=== PATIENT | female | born 1955 | race Caucasian/White ===

== ENCOUNTER 2018-09-11 12:45 | Outpatient (CLI) | payer MEDICARE | END 2018-09-11 12:46 | disposition home or self-care (01) | LOC: BICMAMMO 12:45 | PROVIDERS: ATTEND Family Medicine | DX: Z12.31 Encounter for screening mammogram for malignant neoplasm of breast (principal); R92.1 Mammographic calcification found on diagnostic imaging of breast | CPT/HCPCS: 77063; 77067 ==

== ENCOUNTER 2019-12-09 08:13 | Outpatient (CLI) | payer MEDICARE ==
--- NOTE | 2019-12-09 09:38 | CT ---
NONCONTRAST CHEST CT CT LUNG SCAN LOW DOSE: HISTORY: Personal history of tobacco use Previous smoker for 30+ years. Quit smoking 10 years ago. COMPARISON: None. TECHNIQUE: Low-dose screening lung CT is performed utilizing institutional protocol. FINDINGS: Lung screening specific (LUNG-RADS): 1: Negative exam. No evidence of suspicious masses or malignancy. Potential significant incidentals (lung RADS category S): None Pulmonary incidentals:Emphysematous changes throughout the lung parenchyma, predominantly in the uppe r lobes. Scarring and atelectasis in the middle lobe. Calcified granuloma in the right upper lobe, superior segment of the left lower lobe. Partially calcified solid nodule in the right lower lobe krysten sures 0.5 x 0.4 cm. Other incidentals: Minimal atherosclerosis of the aorta. IMPRESSION: 1. Lung RADS 1: Negative exam. No evidence of malignancy. 2. Lung Rask category S: Negative. No new or unknown potential significant incidental findings requir ing urgent additional evaluation 3. Partially calcified solid nodule in the right lower lobe. The possibility of an incompletely calci fied granuloma is raised, given other calcified granulomas are present. Short-term follow-up CT in 6 months is recommended. Transcribed Date/Time: 12/09/2019 9:45 AM
== END 2019-12-09 08:14 | disposition home or self-care (01) ==
LOC: CT 08:13
PROVIDERS: ATTEND Family Medicine
DX: Z12.2 Encounter for screening for malignant neoplasm of respiratory organs (principal); R91.1 Solitary pulmonary nodule; Z87.891 Personal history of nicotine dependence
CPT/HCPCS: 36415; 80053; 80061; 84443; 85025; G0297

== ENCOUNTER 2020-08-16 09:32 | Outpatient (CLI) | payer MEDICARE ==
--- NOTE | 2020-08-16 10:13 | ULT ---
US Abdominal Aorta History: Abdominal aortic aneurysm screening Comparison: None. Findings: Real-time grayscale, color and spectral analysis of the abdomen was performed. Incidental note is made of diffuse increased hepatic echotexture suggesting steatosis. No aortic aneu rysm. The proximal aorta measures 2 cm. The mid aorta measures 1.6 cm. The distal aorta measures 1.3 cm. Impression: 1. Normal appearance of the aorta without aneurysmal dilatation. 2. Diffuse hepatic steatosis incidentally noted.
--- NOTE | 2020-08-16 13:14 | CT ---
LOW DOSE CT SCAN OF THE CHEST WITHOUT IV CONTRAST FOR LUNG CANCER SCREENING: Date: 08/16/2020 HISTORY: Smoker for 30+ years; quit 10 years ago. Personal history of tobacco use COMPARISON: 12/09/2019. FINDINGS: The 4.0 mm solid nodule in the periphery of the right lower lobe and the 4.0 mm nodule in the periph shankar of the left lower lobe are stable. There is a probable ground-glass 4.0 nodule in the posterior aspect of the right middle lobe. This wa s not definitely seen on the previous exam. Small calcified granulomas in the lungs are again seen. T here are emphysematous changes in the lung carmona bilaterally. No pleural or pericardial effusions are seen. There are vascular calcifications without evidence of a neurysmal dilatation of the thoracic aorta. IMPRESSION: Lung-RADS 3: Likely benign. RECOMMENDATION; A 6 month follow-up LDCT is recommended. POS: JACOBY
== END 2020-08-16 09:33 | disposition home or self-care (01) ==
LOC: BICULT 09:32
PROVIDERS: ATTEND Family Medicine
DX: Z13.6 Encounter for screening for cardiovascular disorders (principal); Z12.2 Encounter for screening for malignant neoplasm of respiratory organs; Z87.891 Personal history of nicotine dependence; K76.0 Fatty (change of) liver, not elsewhere classified; R91.1 Solitary pulmonary nodule
CPT/HCPCS: 76775; G0297

== ENCOUNTER 2021-03-08 13:39 | Outpatient (CLI) | payer MEDICARE | END 2021-03-08 13:40 | disposition home or self-care (01) | LOC: BICMAMMO 13:39 | PROVIDERS: ATTEND Nurse Practitioner Family | DX: Z13.820 Encounter for screening for osteoporosis (principal); Z12.2 Encounter for screening for malignant neoplasm of respiratory organs; R91.8 Other nonspecific abnormal finding of lung field; Z78.0 Asymptomatic menopausal state; M81.0 Age-related osteoporosis without current pathological fracture | CPT/HCPCS: 71271; 77080 ==

== ENCOUNTER 2022-03-08 14:50 | Outpatient (CLI) | payer MEDICARE | END 2022-03-08 14:51 | disposition home or self-care (01) | LOC: BICMAMMO 14:50 | PROVIDERS: ATTEND Family Medicine | DX: Z12.31 Encounter for screening mammogram for malignant neoplasm of breast (principal); Z12.2 Encounter for screening for malignant neoplasm of respiratory organs; F17.211 Nicotine dependence, cigarettes, in remission; R91.8 Other nonspecific abnormal finding of lung field | CPT/HCPCS: 71271; 77063; 77067 ==

== ENCOUNTER 2023-04-25 12:49 | Outpatient (CLI) | payer MEDICARE | END 2023-04-25 12:50 | disposition home or self-care (01) | LOC: BICMAMMO 12:49 | PROVIDERS: ATTEND Family Medicine | DX: Z12.2 Encounter for screening for malignant neoplasm of respiratory organs (principal); Z12.31 Encounter for screening mammogram for malignant neoplasm of breast; N95.9 Unspecified menopausal and perimenopausal disorder; M81.0 Age-related osteoporosis without current pathological fracture; F17.211 Nicotine dependence, cigarettes, in remission | CPT/HCPCS: 71271; 77063; 77067; 77080 ==

== ENCOUNTER 2024-09-03 09:07 | Outpatient (CLI) | payer MEDICARE | END 2024-09-03 09:08 | disposition home or self-care (01) | LOC: BICRAD 09:07 | PROVIDERS: ATTEND Family Medicine | DX: M54.42 Lumbago with sciatica, left side (principal); M43.16 Spondylolisthesis, lumbar region; M43.17 Spondylolisthesis, lumbosacral region; M47.816 Spondylosis without myelopathy or radiculopathy, lumbar region; M47.817 Spondylosis without myelopathy or radiculopathy, lumbosacral region | CPT/HCPCS: 72100 ==